=== PATIENT | female | born 1960 | race Caucasian/White ===

== ENCOUNTER 2023-03-12 14:48 | Emergency (ER) | payer BC ==
[~2023-03-12] VITALS: Ht 165.1 cm; Wt 90.7 kg
[2023-03-12 15:08] VITALS: BP 117/71
--- NOTE | 2023-03-12 15:15 | NUR ---
PT AMBULATORY TO BEATRICE C
[2023-03-12] MEDS ORDERED: DEXAMETHASONE 10 MG/ML VIAL IM ONE (15:45)
[2023-03-12] MEDS ORDERED: LOTRC TP (16:09)
[2023-03-12] MEDS ORDERED: BENC TP (16:09)
[2023-03-12] MEDS ORDERED: CETI10SG1 PO (16:09)
[2023-03-12] MEDS ORDERED: LORA10TA19 PO (16:09)
[2023-03-12 16:21] LABS: APPEARANCE,URINE CLEAR (CLEAR); BILIRUBIN,URINE NEGATIVE (NEGATIVE); BLOOD, URINE 2+ (NEGATIVE); COLOR,URINE YELLOW (YELLOW); LEUKOCYTE ESTERASE ,URINE 2+ (NEGATIVE); NITRITE, URINE NEGATIVE (NEGATIVE); UGLUCOSE NEGATIVE (NEGATIVE)
--- NOTE | 2023-03-12 16:34 | NUR ---
62 y/o female, c/o generalized rash on body for 1 week with itching. pt states that she recently started trazodone 2 weeks ago and is stopped taking that medication last week around when the symptoms started. denies sob or any difficulty breathing. pt also reporting that she has some dysuria as well as urinary frequency. denies any abdominal pain, hematuria. pmh: htn, depression nka med: benadryl
[2023-03-12 16:49] LABS: RBC,URINE 11-20 (MOD) /HPF (0-5)
[2023-03-12] MEDS ORDERED: NITR100C7 PO (17:05)
--- NOTE | 2023-03-12 17:25 | NUR ---
pt encouraged to give urine sample. water and urine cup provided
[2023-03-12 17:51] VITALS: BP 117/71
--- NOTE | 2023-03-12 17:51 | NUR ---
Patient discharged with v/s stable. Written and verbal after care instructions given and explained. Patient alert, oriented and verbalized understanding of instructions. Ambulatory with steady gait. All questions addressed prior to discharge. ID band removed. Patient advised to follow up with PMD. Rx of BENADRYL, ZYRTEC, CLOTRIMAZOLE, MACROBID (SENT) given. Patient educated on indication of medication including possible reaction and side effects. Opportunity to ask questions provided and answered.
== END 2023-03-12 17:51 | disposition home or self-care (01) ==
LOC: MED 14:48
DX: R21 Rash and other nonspecific skin eruption (principal); N39.0 Urinary tract infection, site not specified; I10 Essential (primary) hypertension; Z88.8 Allergy status to other drugs, medicaments and biological substances; Z79.899 Other long term (current) drug therapy
CPT/HCPCS: 81001; 87086; 96372; 99283; J1100